=== PATIENT | female | born 1985 ===

== ENCOUNTER 2020-08-17 10:30 | Outpatient (REF) | payer OTHER, SELFPAY | END 2020-08-17 10:31 | disposition home or self-care (01) | LOC: HO.LAB 10:30 | PROVIDERS: Visit Provider Internal Medicine | DX: Z20.822 Contact with and (suspected) exposure to COVID-19 (principal) | CPT/HCPCS: 36415; C9803; U0003; U0005 ==

== ENCOUNTER 2021-03-28 13:20 | Emergency (ER) | payer OTHER, SELFPAY ==
[2021-03-28 14:26] VITALS: BP 120/59; PULSE 74; RESP 18; TEMP 37; O2SAT 98; BMI 35.4
[2021-03-28 15:23] LABS: Appearance Urine HAZY; Color Urine YELLOW; Glucose Urine UA NEG (NEG); Leukocyte Esterase Urine NEG (NEG); Nitrite Urine NEG (NEG); Specific Gravity - Urine 1.025 (1.005-1.025); UACC Culture Trigger NO; Urine Blood NEG (NEG); Urine Ketones NEG (NEG); Urine Protein 1+ MG/DL (NEG-TRACE)
[2021-03-28 15:26] LABS: UPreg QC Valid YES; Urine Pregnancy NEGATIVE (NEGATIVE)
[2021-03-28 15:33] LABS: MANUAL DIFF FLAG NO
[2021-03-28 15:34] LABS: Basophils Percent Auto 0.1 % (0-2); Eosinophils Absolute Auto 0.3 X10*3/uL (0.0-0.4); Eosinophils Percent Auto 4.1 % (0-4); Hematocrit 38.3 % (37-47); Hemoglobin 12.9 g/dl (12.0-16.0); Imm Gran Abs Auto 0.02 X10*3/uL (0.00-0.03); Imm Gran Pct Auto 0.3 % (0.0-0.4); Lymphocytes Absolute Auto 2.4 X10*3/uL (1.2-4.9); Lymphocytes Percent Auto 30.6 % (20-40); Mean Corpuscular HGB Conc 33.7 g/dl (31.0-35.0); Mean Platelet Volume 9.7 fL (9.4-12.3); Monocytes Absolute Auto 0.6 X10*3/uL (0.1-1.2); Monocytes Percent Auto 7.2 % (2-11); Neutrophils Absolute Auto 4.5 X10*3/uL (2.0-8.3); Neutrophils Percent Auto 57.7 % (45-73); Platelet Count 242 X10*3/uL (160-400); Red Blood Count 4.03 X10*6/uL (4.20-5.50); Red Cell Distribution Width 12.9 % (11.0-16.0); White Blood Count 7.8 X10*3/uL (4.8-10.8)
--- NOTE | 2021-03-28 15:41 | ED_ITS ---
HPI - General Adult General Chief complaint: General Medical Stated complaint: feet legs and arm swelling painfull Time Seen by Provider: 03/28/21 15:27 Source: patient Mode of arrival: ambulatory Limitations: no limitations History of Present Illness HPI narrative: Patient presents to ED for ? swelling of bilateral arms/legs since monday. Patient staters no chest pain, shortness of breath, fever, chills, calf pain, abdominal swelling, ecchymosis, redness, or any recent trauma. Related Data Previous Rx's Medication Instructions Recorded naproxen 500 mg tablet 500 mg PO BID PRN #20 tab 03/28/21 Allergies Allergy/AdvReac Type Severity Reaction Status Date / Time amoxicillin [AMOXICILLIN] Allergy Unknown ANAPHYLAXIS Verified 03/28/21 14:25 cefuroxime [From CEFTIN] Allergy Unknown ANAPHYLAXIS Verified 03/28/21 14:25 Penicillins [PENICILLINS] Allergy Unknown ANAPHYLAXIS Verified 03/28/21 14:25 Review of Systems Review of Systems: Yes all other systems are reviewed and are negative Constitutional: Constitutional: Reports as per HPI and Reports no additional constitutional complaints Eyes: Eyes: Reports as per HPI and Reports no additional eye complaints ENT: Reports system reviewed and no additional complaints, except as documented and Reports as per HPI Cardiovascular: Cardiovascular: Reports as per HPI and Reports no additional cardiovascular complaints Respiratory: Respiratory: Reports as per HPI and Reports no additional respiratory complaints Gastrointestinal: Gastrointestinal: Reports as per HPI, Reports no additional gastrointestinal complaints and Reports abdominal pain (LLQ pain) Genitourinary: Genitourinary: Reports no additional female genitourinary complaints and Reports as per HPI Musculoskeletal: Musculoskeletal: Reports no additional musculoskeletal complaints and Reports as per HPI Comments: pain in upper and lower extremities. Neurologic: Reports system reviewed and no additional complaints, except as documented and Reports as per HPI Psychiatric: Psychiatric: Reports no additional psychiatric complaints and Reports as per HPI [facility] Past Medical History Medical History (Updated 03/28/21 @ 16:51 by ALEXSANDRA Powell) Asthma Scoliosis Social History Social History Advance Directives: No Advance Directives Information Provided: No Physical Exam Vital Signs: Vital Signs: Last Vital Signs Temp 98.6 F 03/28/21 14:26 Pulse 74 03/28/21 14:26 Resp 18 03/28/21 14:26 BP 120/59 L 03/28/21 14:26 Pulse Ox 98 03/28/21 14:26 Body Mass Index 35.4 Const: General: cooperative, healthy appearing, comfortable, no acute distress, well developed, alert, awake and Physically active HENMT: Head: Yes normal to inspection, Yes No palpable skull fracture present, Yes normocephalic, Yes atraumatic and No abrasion Eyes: General: appearance normal, both eyes and all related structures Neck: Neck: Yes normal visual inspection, Yes full ROM, Yes no lymphadenopathy, Yes no meningeal signs, Yes trachea midline, Yes supple and No tender Chest: Chest palpation & inspection: normal inspection of the chest and normal palpation of entire chest wall Resp: Effort & Inspection: normal respiratory effort and able to speak in complete sentences Auscultation: clear to auscultation bilaterally Cardio: Jugular venous distension: no JVD Heart sounds: S1 normal heart sound present and S2 normal heart sound present GI: Inspection: Yes normal to inspection and No abdominal wall ecchymosis Palpation (GI): Soft to palpation, not firm, nontender, no guarding and not rigid : General: No CVA tenderness and Yes no CVA tenderness Back/Spine/Pelvis: Back: no CVA tenderness, No CVA tenderness and No back tenderness Skin: General skin exam: no rashes or lesions noted and elasticity normal Neuro: General: gait normal, tone normal, no meningeal signs and CN's II-XI intact bilaterally Cranial nerves: Yes CN's II-XII intact bilaterally Extrem: Other: Bilateral Upper Extremities: negative for any swelling, redness, echymossis, pitting edema, tendenerness, coldness, warmness, tremor s,mass, or skin tightness. Motor, neuro, and vascular exam is intact. Bilateral lower Extremities: negative for any swelling, redness, echymossis, pitting edema, tendenrness, codness, warmness, tremors, mass, or skin tightness. Leander, neuro, and vascular exam is intact. Psych: Appearance: grossly normal, well kempt and not disheveled Course Course Course Narrative: Physical exam does not indicate any swelling of upper and lower extremities. Negative for signs of DVT or cellulitis. Will still do BMP and liver enzymes to check for any abnormalities to see there is any possible anasarca in the past. Fluid ordered. Labs and beta hCG ordered. Reevaluation(s) Reevaluation #1: Patient's liver enzymes came back normal. Patient is BNP and kidney function came back normal. labs and physical exam does not indicate anisarcia or CHF. Patient is not on any control pills to indicate risk for blood clots. Physical exam does not indicate blood clots. Once again presently there is no swelling. Patient states abdominal pain resolved on its own without any medical intervention. Patient is hungry would like to eat. Patient passed p.o. challenge. Patient states she has multiple CAT scan normal ultrasound. Patient states most recent normal ultrasound and CT scan was last week at [facility]. No need for any repeat imaging here. Patient does not have any tenderness on abdominal exam. Time: 16:44 Medical Decision Making MDM Narrative Medical decision making narrative: Chronic abdominal pain. Extremity issues Lab Data Result diagrams: 03/28/21 15:29 03/28/21 15:29 Labs: Lab Results 03/28/21 03/28/21 03/28/21 Range/Units 15:12 15:13 15:29 WBC 7.8 (4.8-10.8) X10*3/uL RBC 4.03 L (4.20-5.50) X10*6/uL Hgb 12.9 (12.0-16.0) g/dl Hct 38.3 (37-47) % MCV 95.0 (80-98) fL MCH 32.0 (27.0-33.0) pg MCHC 33.7 (31.0-35.0) g/dl RDW 12.9 (11.0-16.0) % Plt Count 242 (160-400) X10*3/uL MPV 9.7 (9.4-12.3) fL Immature Gran % (Auto) 0.3 (0.0-0.4) % Neut % (Auto) 57.7 (45-73) % Lymph % (Auto) 30.6 (20-40) % Patrick % (Auto) 7.2 (2-11) % Eos % (Auto) 4.1 H (0-4) % Baso % (Auto) 0.1 (0-2) % Lymph # (Auto) 2.4 (1.2-4.9) X10*3/uL Patrick # (Auto) 0.6 (0.1-1.2) X10*3/uL Eos # (Auto) 0.3 (0.0-0.4) X10*3/uL Baso # (Auto) 0.0 (0.0-0.2) X10*3/uL Abs Immat Gran (auto) 0.02 (0.00-0.03) X10*3/uL Absolute Neuts (auto) 4.5 (2.0-8.3) X10*3/uL Absolute Nucleated RBC 0.000 (0.0-0.012) X10*3/uL Nucleated RBC % (auto) 0.0 (0.0-0.2) /100WBC Sodium (135-145) mmol/L Potassium (3.3-5.1) mmol/L Chloride (96-108) mmol/L Carbon Dioxide (22-29) mmol/L Anion Gap (12-20) BUN (9-16) mg/dL Creatinine (0.5-1.4) mg/dL Estim Creat Clear Calc Estimated GFR Random Glucose (60-115) mg/dL Calcium (8.4-10.2) mg/dL Total Bilirubin (0.0-1.0) mg/dL Direct Bilirubin (0.0-0.5) mg/dL AST (5-31) U/L ALT (0-31) U/L Alkaline Phosphatase (39-117) U/L Total Creatine Kinase (26-140) U/L B-Natriuretic Peptide (<100) pg/mL Total Protein (6.5-8.0) g/dL Albumin (3.5-5.0) g/dL Beta HCG, Quant mIU/mL Urine Color YELLOW Urine Appearance HAZY Urine pH 6.0 (5.0-8.0) Ur Specific Dunlap 1.025 (1.005-1.025) Urine Protein 1+ H (NEG-TRACE) MG/DL Urine Glucose (UA) NEG (NEG) MG/DL Urine Ketones NEG (NEG) MG/DL Urine Blood NEG (NEG) Urine Nitrite NEG (NEG) Ur Leukocyte Esterase NEG (NEG) Urine RBC 1-4 (0) /HPF Urine WBC 0-2 (0-4) /HPF Ur Squamous Epith Cells 1+ /LPF Urine Bacteria TRACE /LPF Urine Mucus 2+ /LPF Urine Test NEGATIVE (NEGATIVE) 03/28/21 03/28/21 Range/Units 15:29 15:29 WBC (4.8-10.8) X10*3/uL RBC (4.20-5.50) X10*6/uL Hgb (12.0-16.0) g/dl Hct (37-47) % MCV (80-98) fL MCH (27.0-33.0) pg MCHC (31.0-35.0) g/dl RDW (11.0-16.0) % Plt Count (160-400) X10*3/uL MPV (9.4-12.3) fL Immature Gran % (Auto) (0.0-0.4) % Neut % (Auto) (45-73) % Lymph % (Auto) (20-40) % Patrick % (Auto) (2-11) % Eos % (Auto) (0-4) % Baso % (Auto) (0-2) % Lymph # (Auto) (1.2-4.9) X10*3/uL Patrick # (Auto) (0.1-1.2) X10*3/uL Eos # (Auto) (0.0-0.4) X10*3/uL Baso # (Auto) (0.0-0.2) X10*3/uL Abs Immat Gran (auto) (0.00-0.03) X10*3/uL Absolute Neuts (auto) (2.0-8.3) X10*3/uL Absolute Nucleated RBC (0.0-0.012) X10*3/uL Nucleated RBC % (auto) (0.0-0.2) /100WBC Sodium 141 (135-145) mmol/L Potassium 4.0 (3.3-5.1) mmol/L Chloride 109 H (96-108) mmol/L Carbon Dioxide 25 (22-29) mmol/L Anion Gap 11 L (12-20) BUN 6 L (9-16) mg/dL Creatinine 0.76 (0.5-1.4) mg/dL Estim Creat Clear Calc 134.0 Estimated GFR > 60 Random Glucose 98 (60-115) mg/dL Calcium 9.5 (8.4-10.2) mg/dL Total Bilirubin 0.6 (0.0-1.0) mg/dL Direct Bilirubin 0.2 (0.0-0.5) mg/dL AST 14 (5-31) U/L ALT 16 (0-31) U/L Alkaline Phosphatase 73 (39-117) U/L Total Creatine Kinase 79 (26-140) U/L B-Natriuretic Peptide 36 (<100) pg/mL Total Protein 7.2 (6.5-8.0) g/dL Albumin 4.4 (3.5-5.0) g/dL Beta HCG, Quant < 2 mIU/mL Urine Color Urine Appearance Urine pH (5.0-8.0) Ur Specific Dunlap (1.005-1.025) Urine Protein (NEG-TRACE) MG/DL Urine Glucose (UA) (NEG) MG/DL Urine Ketones (NEG) MG/DL Urine Blood (NEG) Urine Nitrite (NEG) Ur Leukocyte Esterase (NEG) Urine RBC (0) /HPF Urine WBC (0-4) /HPF Ur Squamous Epith Cells /LPF Urine Bacteria /LPF Urine Mucus /LPF Urine Test (NEGATIVE) Discharge Plan Discharge Clinical Impression: Chronic abdominal pain, Myalgia Patient Disposition: Home, Self-Care Instructions: Musculoskeletal Pain (ED), Chronic Abdominal Pain (ED) Additional Instructions: Return to the ED immediately for swelling of upper or lower extremities, redness, calf pain, bluish black discoloration, chest pain, shortness of breath, nausea, vomiting, inability tolerate solid food/liquid, redness, warmness, process coordinator lness, fever, or chills. Please follow-up with primary care provider. Prescriptions: New naproxen 500 mg tablet 500 mg PO BID PRN (Reason: pain) Qty: 20 RF: 0 Referrals: Ted Berman [Physician] - 2 days (Chronic abdominal pain.) Stand Alone Forms: Work/School Release Interventions: ED Discharge Assessment Last Done: 03/28/21 17:00 Discharge Date/Time: 03/28/21 17:00 Print Language: Northern Irish
[2021-03-28 15:42] LABS: WBC Urine 0-2 /HPF (0-4)
[2021-03-28 15:43] LABS: Bacteria Urine TRACE /LPF; Mucus Urine 2+ /LPF; Squamous Epithelial Cell Urine 1+ /LPF
[2021-03-28 15:53] LABS: B Type Natriuretic Peptide 36 pg/mL (<100)
[2021-03-28 15:54] LABS: Alanine Aminotransferase 16 U/L (0-31); Albumin Level 4.4 g/dL (3.5-5.0); Alkaline Phosphatase 73 U/L (39-117); Anion Gap 11 (12-20); Aspartate Amino Transferase 14 U/L (5-31); Bilirubin Direct 0.2 mg/dL (0.0-0.5); Bilirubin Total 0.6 mg/dL (0.0-1.0); Blood Urea Nitrogen 6 mg/dL (9-16); Calcium 9.5 mg/dL (8.4-10.2); Carbon Dioxide 25 mmol/L (22-29); Chloride 109 mmol/L (96-108); Estimated Glomerular Filt Rate > 60; Glucose Random 98 mg/dL (60-115); Sodium 141 mmol/L (135-145); Total Protein 7.2 g/dL (6.5-8.0)
[2021-03-28 16:00] LABS: HCG Quantitative < 2 mIU/mL
== END 2021-03-28 17:00 | disposition home or self-care (01) ==
PROVIDERS: Physician Assistant; Emergency Provider Emergency Medicine Emergency Medical Services; PCP Internal Medicine
DX: R60.0 Localized edema (principal); R06.02 Shortness of breath; M79.10 Myalgia, unspecified site; R10.9 Unspecified abdominal pain; Z79.899 Other long term (current) drug therapy
CPT/HCPCS: 36415; 80053; 81001; 81025; 82248; 82550; 83880; 84702; 85025; 99282; 99283

== ENCOUNTER 2024-01-11 23:31 | Emergency (ER) | payer OTHER, SELFPAY ==
--- NOTE | ~2024-01-11 | XR_ITS ---
EXAMINATION: XR KNEE, LEFT CLINICAL INFORMATION: Fall. Pain. COMPARISON: None available. TECHNIQUE: Four views of the left knee. FINDINGS: The bone mineralization is normal. The joint spaces are maintained. There is a lucency through the medial patella. There is a moderate to large joint effusion. The soft tissues are unremarkable XR/XR knee LT 2V IMPRESSION: 1. Moderate to large joint effusion. 2. Lucency through the medial patella suggests an acute nondisplaced fracture. Correlate with point tenderness.
--- NOTE | ~2024-01-11 | CT_ITS ---
EXAMINATION: CT KNEE WITHOUT CONTRAST, LEFT CLINICAL INFORMATION: Patellar fracture with a large effusion. COMPARISON: Left knee radiographs dated 01/11/2024. TECHNIQUE: Contiguous axial CT images of the left knee were obtained without contrast. Multiplanar reformats were provided and reviewed. This CT examination was performed using dose optimization techniques as appropriate, variously including the following: *Automated exposure control *Adjustment of mA and/or kV according to patient size (this includes techniques or standardized protocols for targeted exams where dose is matched to indication/reason for exam; i.e. extremities or head) *Use of iterative reconstruction technique DLP: 246 mGy-cm FINDINGS: Minimally displaced, oblique fracture through the inferomedial pole of the patella with the resultant fracture gap measuring up to 0.3 cm in ML dimension and contacting the articular surface. Normal patellofemoral alignment. No dislocation. Tiny superior patellar enthesophytes. No femoral, tibial, or fibular fracture. No joint space narrowing or marginal osteophytes. No concerning lytic or blastic osseous lesion. No evidence of avascular necrosis. Moderate lipohemarthrosis. No soft tissue mass or fluid collection. The visualized muscles and tendons are grossly intact, however, evaluation is limited on CT examination. CT/CT knee LT wo IV con IMPRESSION: 1. Minimally displaced, oblique fracture through the inferomedial pole of the patella with the resultant fracture gap measuring up to 0.3 cm and contacting the articular surface. 2. Moderate lipohemarthrosis.
[2024-01-11 23:34] VITALS: BP 126/81; PULSE 83; RESP 18; TEMP 36.6; O2SAT 97; BMI 32.9
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
[2024-01-12] MEDS: Ibuprofen 600 MG TABLET PO (04:57)
[2024-01-12 05:33] VITALS: BP 129/77; PULSE 63; RESP 16; TEMP 36.8; O2SAT 98
[2024-01-12 09:02] VITALS: BP 133/86; PULSE 75; RESP 16; TEMP -17.7; TEMP 0; O2SAT 97
== END 2024-01-12 09:03 | disposition home or self-care (01) ==
PROVIDERS: Emergency Provider Internal Medicine
DX: S82.092A Other fracture of left patella, initial encounter for closed fracture (principal); W01.0XXA Fall on same level from slipping, tripping and stumbling without subsequent striking against object, initial encounter; Y93.9 Activity, unspecified; Y92.830 Public park as the place of occurrence of the external cause; Y99.9 Unspecified external cause status
CPT/HCPCS: 73560; 73700; 99284

== ENCOUNTER 2024-01-30 10:21 | Outpatient (AMB) | payer OTHER, SELFPAY ==
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
[2024-01-30 10:36] VITALS: BMI 32.9
== END 2024-01-30 11:38 | disposition home or self-care (01) ==
PROVIDERS: Visit Provider Physician Assistant
DX: S82.002A Unspecified fracture of left patella, initial encounter for closed fracture (principal); W01.0XXA Fall on same level from slipping, tripping and stumbling without subsequent striking against object, initial encounter
CPT/HCPCS: 99204

== ENCOUNTER 2024-01-30 10:42 | Outpatient (REF) | payer OTHER, SELFPAY ==
--- NOTE | ~2024-01-30 | XR_ITS ---
EXAMINATION: XR KNEE, LEFT CLINICAL INFORMATION: Pain in the knee. [place]. COMPARISON: None multiple prior examinations including x-ray left knee 01/11/[address] scan of left knee January 12, 2024. TECHNIQUE: AP and lateral views left knee and patella view of the left knee FINDINGS: Mildly displaced intra-articular patellar fracture redemonstrated with unchanged appearance and alignment. Minimal joint effusion. The medial and lateral compartments are normal. XR/XR knee LT 1V IMPRESSION: Patellar fracture unchanged. Minimal joint effusion. Electronically signed by: Mark Perez MD 02/22/2024 09:41 PM EDT
--- NOTE | ~2024-01-30 | XR_ITS ---
EXAMINATION: XR KNEE, LEFT CLINICAL INFORMATION: Pain in the knee. [place] view. COMPARISON: None multiple prior examinations including x-ray left knee 01/11/[address] scan of left knee January 12, 2024. TECHNIQUE: AP and lateral views left knee and patella view of the left knee FINDINGS: Mildly displaced intra-articular patellar fracture redemonstrated with unchanged appearance and alignment. Minimal joint effusion. The medial and lateral compartments are normal. XR/XR knee LT 2V IMPRESSION: Patellar fracture unchanged. Minimal joint effusion. Electronically signed by: Mark Perez MD 02/22/2024 09:41 PM EDT
== END 2024-01-30 10:43 | disposition home or self-care (01) ==
LOC: HO.HOSX 10:42
PROVIDERS: Visit Provider Physician Assistant
DX: S82.002A Unspecified fracture of left patella, initial encounter for closed fracture (principal)
CPT/HCPCS: 73560; 73562; 99202

== ENCOUNTER 2024-02-05 09:02 | Outpatient (AMB) | payer OTHER, SELFPAY ==
[2024-02-05 09:07] VITALS: BMI 32.9
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
== END 2024-02-05 10:39 | disposition home or self-care (01) ==
PROVIDERS: Visit Provider Orthopaedic Surgery
DX: S82.002A Unspecified fracture of left patella, initial encounter for closed fracture (principal)
CPT/HCPCS: 99213

== ENCOUNTER → 2024-02-05 09:02 | Outpatient (BNVA) | payer OTHER, SELFPAY | PROVIDERS: Visit Provider Orthopaedic Surgery | DX: S82.092A Other fracture of left patella, initial encounter for closed fracture (principal); W01.0XXA Fall on same level from slipping, tripping and stumbling without subsequent striking against object, initial encounter; Y93.89 Activity, other specified; Y92.830 Public park as the place of occurrence of the external cause; Y99.9 Unspecified external cause status | CPT/HCPCS: 99212 ==

== ENCOUNTER 2024-05-13 10:56 | Outpatient (REF) | payer OTHER, SELFPAY | END 2024-05-13 10:57 | disposition home or self-care (01) | LOC: HO.HOSX 10:56 | PROVIDERS: Visit Provider Orthopaedic Surgery | DX: Z13.89 Encounter for screening for other disorder (principal) ==

== ENCOUNTER 2024-09-23 08:53 | Outpatient (REF) | payer OTHER, SELFPAY ==
--- NOTE | ~2024-09-23 | XR_ITS ---
EXAMINATION: XR KNEE, LEFT CLINICAL INFORMATION: M25.562 - Pain in left knee COMPARISON: January 30, 2024. TECHNIQUE: Three views of the left knee. FINDINGS: There is a diagonally oriented cortical disruption/lucency involving the medial aspect of the left patella with a 1 mm gap between the fragments. The femoral condyles and tibial plateaus are intact. Normal alignment. Proximal femur lies intact. No suprapatellar bursa joint effusion. XR/XR knee LT 3V IMPRESSION: Nonunion fracture, medial aspect left patella. Electronically signed by: Nilesh Oakes MD 09/24/2024 01:36 PM EDT
== END 2024-09-23 08:54 | disposition home or self-care (01) ==
LOC: HO.HOSX 08:53
PROVIDERS: Visit Provider Orthopaedic Surgery
DX: M25.562 Pain in left knee (principal); S82.002A Unspecified fracture of left patella, initial encounter for closed fracture; X58.XXXA Exposure to other specified factors, initial encounter; Y93.9 Activity, unspecified; Y92.9 Unspecified place or not applicable; Y99.9 Unspecified external cause status
CPT/HCPCS: 73562; 99212

== ENCOUNTER 2024-09-23 09:27 | Outpatient (AMB) | payer OTHER, SELFPAY ==
--- NOTE | 2024-09-23 09:31 | A.OFFVIS_ITS ---
Intake Visit Reasons: OV - Left Patella Fx 01/12/24 - increased pain Intake Note: Tara is a 39 year old female who presents today about 9 months s/p Left Patella fracture, DOI: 01/12/24 with complaints of increasing pain. At her last visit in January 2024 we discussed surgical vs non surgical interventions and agr eed to weight bear in extension with brace in flexion. She did not follow up with us in four weeks as recommended. She denies any injury since her fracture on 01/12/24. She also needs to have her right knee examined. [employer] Required: No Allergies amoxicillin [AMOXICILLIN] Allergy (Unknown, Verified 09/23/24 09:32) ANAPHYLAXIS cefuroxime [From CEFTIN] Allergy (Unknown, Verified 09/23/24 09:32) ANAPHYLAXIS Penicillins [PENICILLINS] Allergy (Unknown, Verified 09/23/24 09:32) ANAPHYLAXIS Medication List - Last Reconciled 09/23/24 by Katie Almazan RN albuterol-budesonide 90-80 mcg/actuation 2 inhalations inhalation DAILY PRN fluticasone propion-salmeterol 100-50 mcg/dose (Advair Diskus) 1 inh inhalation BID hydroxyzine HCl 25 mg PO BEDTIME lamotrigine 25 mg PO DAILY sertraline (Zoloft) 25 mg PO DAILY HPI HPI OV - Left Patella Fx 01/12/24 - increased pain: Details: Tara is a 39-year-old who comes in today with 8 months status post patella fracture treated nonoperatively. She describes slight worsening of pain with stairs and standing from a seated position. Occasional swelling. Occasional giving way. [facility] Medical History (Updated 01/30/24 @ 11:05 by Carolyn Strickland) Scoliosis Asthma Social History (Updated 01/30/24 @ 10:39 by Charlee Blanca) Alcohol intake: never Patient Tobacco Use Status: Never used Tobacco Current occupational status: unemployed Current occupation: right hand dominant Physical Exam Extrem Other: Mild crepitus with extension and trace effusion but minimal pain. No tenderness over the patellar fracture. Results Reviewed Results Reviewed: I personally reviewed relevant radiographs. Healed left patella fracture Assessment & Plan Assessment & Plan (1) Left patella fracture: Code(s): S82.002A - Unspecified fracture of left patella, initial encounter for closed fracture Category: Medical Plan: Healed patella fracture with pain on patellofemoral loading. Physical therapy ordered Orders: Orders XR knee LT 3V Today M25.562 - Pain in left knee PT Evaluation and Treatment Today S82.002A - Unspecified fracture of left patella, initial encounter for closed fracture Coding Level of Care Code Est Pt Level 3 (10913) Diagnoses Left patella fracture S82.002A
== END 2024-09-23 10:50 | disposition home or self-care (01) ==
LOC: HO.HOS 09:28
PROVIDERS: Visit Provider Orthopaedic Surgery
DX: S82.002D Unspecified fracture of left patella, subsequent encounter for closed fracture with routine healing (principal)
CPT/HCPCS: 99213

== ENCOUNTER → 2024-09-23 09:29 | Outpatient (BNV) | payer OTHER, SELFPAY | PROVIDERS: Visit Provider Radiology Diagnostic Radiology | DX: S82.002K Unspecified fracture of left patella, subsequent encounter for closed fracture with nonunion (principal) | CPT/HCPCS: 73562 ==